=== PATIENT | female | born 1980 | race Caucasian/White ===

== ENCOUNTER 2016-11-09 11:31 | Outpatient (CLI) | payer SELFPAY ==
[~2016-11-09] VITALS: Ht 154.9 cm; Wt 70.9 kg
[2016-11-09 12:19] VITALS: Ht 154.9 cm; Wt 70.9 kg
[2016-11-09 12:20] VITALS: BP 93/54; PULSE 87; RESP 18
[2016-11-09] MEDS ORDERED: LACTATED RINGER'S 1,000 ML IV* SCH (12:30)
[2016-11-09] MEDS: TERBUTALINE 1 MG/ML INJ SC PRN ×2 (12:54→14:32)
[2016-11-09 13:04] LABS: ADD UMIC YES; URINE BILIRUBIN (Dip) NEGATIVE (NEGATIVE); URINE BLOOD (Dip) NEGATIVE (NEGATIVE); URINE COLOR LT. YELLOW (YELLOW); URINE GLUCOSE (Dip) NEGATIVE (NEGATIVE); URINE KETONES (Dip) NEGATIVE (NEGATIVE); URINE LEUKOCYTE ESTERASE (Dip) 1+ (NEGATIVE); URINE NITRITE (Dip) NEGATIVE (NEGATIVE); URINE TOTAL PROTEIN (Dip) NEGATIVE (NEGATIVE); URINE UROBILINOGEN (Dip) 0.2 E.U./dL (0.1-1.0)
[2016-11-09 13:30] LABS: BASOPHILS % 0.3 % (0.0-2.0); EOSINOPHILS # 0.1 10^3/ul (0.0-0.5); HEMATOCRIT 31.8 % (37.0-47.0); LYMPHOCYTES # 1.1 10^3/ul (0.8-2.9); LYMPHOCYTES % 16.3 % (15.0-51.0); MEAN CORPUSCULAR HEMOGLOBIN 31.7 pg (29.0-33.0); MEAN CORPUSCULAR HGB CONC 34.6 g/dl (32.0-37.0); MEAN CORPUSCULAR VOLUME 91.4 fl (82.0-101.0); MEAN PLATELET VOLUME 8.6 fl (7.4-10.4); MONOCYTE # 0.5 10^3/ul (0.3-0.9); MONOCYTES % 7.2 % (0.0-11.0); NEUTROPHILS % 75.2 % (39.0-77.0); PLATELET COUNT 156 10^3/UL (140-440); RED BLOOD COUNT 3.48 10^6/ul (4.20-5.40); UNCORRECTED WBC 6.7 10^3/ul (4.8-10.8); WHITE BLOOD COUNT 6.7 10^3/ul (4.8-10.8)
[2016-11-09 13:35] LABS: SQUAMOUS EPITHELIAL CELL,UR OCCASIONAL; URINE RBCS NONE SEEN /HPF (0)
[2016-11-09 13:37] LABS: CONDITION 1
--- NOTE | 2016-11-09 14:34 | RADRPT ---
PROCEDURE: US OB biophysical profile. CLINICAL INDICATION: evaluation TECHNIQUE: Multiple sonographic images of the pelvis were obtained. The images were reviewed on a PACS workstation. COMPARISON: None FINDINGS: The cervix is closed and measures 4.3 cm in length. There is a single viable intrauterine gestation. Cardiac activity is present with 152 beats per min [place]. There is a transverse presentation to maternal left. The placenta is anterior. There is no evidence of placental abruption. There is a normal amount of amniotic fluid with an APOLINAR = 17.8 cm. Biophysical profile: movement 2/2 tone 2/2. breathing 2/2 APOLINAR 2/2 Total 06/07 RPTAT: AA . IMPRESSION: Normal biophysical profile. Normal APOLINAR. The cervix is closed and measures 4.3 cm in length. Physician Jessica Date Time Electronically viewed and signed by Physician Jessica on 11/09/2016 14:34 /
--- NOTE | 2016-11-09 15:43 | TRIAGE ---
OB Triage Datetime Report Generated by CPN: 11/09/2016 15:43 Datetime: 11/09/2016 14:58 Vaginal Exam Dilatation (cms): 0.0 Exam By: khemani Datetime: 11/09/2016 13:00 Stage of : OB Triage Maternal Assessment Level of Consciousness: Fully Conscious Labor Evaluation Frequency: 2-10 Monitor Mode: External Duration (sec)2399: 30-90 Quality: Mild Resting Tone [place]: Relaxed Heart Rate FHR Baseline Rate: 145 Monitor Mode: External US Variability: Moderate 6-25 bpm Accelerations: 10X10 Decelerations: AGA Pain Assessment Pain Scale: 5 Pain Presence: Intermittent Pain Type: Cramping Pain Location: Abdomen Pain Goal: 3 Pain Relief Measures: Comfort Measures Membrane Status: Intact Vaginal Bleeding: None Datetime: 11/09/2016 12:10 Assessment Type: Triage Maternal Assessment Level of Consciousness: Fully Conscious DTR's/Clonus: DTRs 2+; No Clonus Headache: Denies Blurred Vision: No Respiratory Effort: Unlabored; Regular Rhythm; Equal Expansion Breath Sounds, Left: Clear and Equal Breath Sounds, Right: Clear and Equal Nausea/Vomiting: Denies RUQ Epigastric Pain: Denies Lower Extremities Edema: None Degree: None Upper Extremities Edema: None Degree: None Facial Edema: None Fall Risk Assessment History of Falling: (0) No Secondary Diagnosis: (0) No Ambulatory Aid: (0) Bedrest/Nurse Assist IV Therapy: (0) No Gait: (0) Normal/Bedrest/Immobile Mental Status: (0) Oriented to Own Ability Fall Score: 0 Fall Risk Score Definition: No Risk: No action required Datetime: 11/09/2016 12:09 EGA: 30.4 Datetime: 11/09/2016 12:08 Time of Arrival: 11/09/2016 11:25 Arrived By: Ambulatory Arrived From: Home Movement: Present Contractions: Irregular Rupture of Membranes: Denies Vaginal Bleeding: None Vaginal Discharge: Denies Recent Sexual Intercouse: Denies Abdominal Trauma: Not Applicable Patient Complaints: Contractions; Cramping; Back Pain Provider Notified: MARYELLEN Initial Plan: EFM, CBC, UA, U/S FOR BPP, CVL, IV HYDRATION, TERB X 2 PRN.
--- NOTE | 2016-11-09 17:16 | CONS ---
DATE OF ADMISSION: 11/09/2016 DATE OF CONSULTATION: TYPE OF CONSULT: Triage. HISTORY OF PRESENT ILLNESS: This patient is a 36-year-old 2, para 1, whose estimated date o f confinement is 01/14/2017. That makes her about 30 weeks and 4 days at this time. She came to the triage area complaining of contractions and pelvic pressure and lower abdominal pain. On examinatio n, she did have some contractions every 3 to 10 minutes. heart tones were normal. There was no deceleration or variability. NST was reactive. She had a urinalysis which was basically negativ e except for 1+ leukocyte esterase. Her ultrasound showed that the cervical length was 4.3 cm in [facility] and a single viable gestation with cardiac activity of 152. She was in transverse position on t he left maternal side. The placenta was anterior. No evidence of previa or abruptio. The amniotic fluid was adequate. APOLINAR was 17.8. Her biophysical profile was a complete 06/07, and her CBC was als o normal except for mild anemia with hemoglobin 11, hematocrit 31, RBC was 3.48. The rest of the te sts were basically normal. PHYSICAL EXAMINATION: EARS, NOSE AND THROAT: Appear to be normal. NECK: Normal. Thyroid was normal. CHEST: Clear. ABDOMEN: Soft. She was having some contractions early on. The heart tone was normal, as I me ntioned. EXTREMITIES: Her extremities are normal. No edema, no varicosities. Knee jerk reflex was normal. IMPRESSION AND PLAN: As I mentioned, she was given hydration followed by terbutaline. Her contractio ns subsided, and on the last examination a few minutes ago, basically she did not have any contracti ons. The patient was discharged home with a precaution to rest at home and return either to the [facility] or to the office if evidence of labor or rupture of membranes. Dictated By: ASHLY SANTIAGO/PHUC Conf#: [id number] DID#: [id number]
== END 2016-11-09 15:45 | disposition home or self-care (01) ==
LOC: OBT 11:31 → L-D 11:32 → OBT 15:45
PROVIDERS: ATTEND Obstetrics & Gynecology
DX: O62.9 Abnormality of forces of labor, unspecified (principal); Z3A.30 30 weeks gestation of pregnancy
CPT/HCPCS: 36415; 76817; 76818; 81001; 85025; 96360; 96372; G0463; J3105; J7120; 81003

== ENCOUNTER 2017-01-07 09:58 | Inpatient (IN) | payer MEDICAID ==
[2017-01-07] VITALS (9 sets, daily range): BP systolic 95–118; BP diastolic 52–66; PULSE 50–100; RESP 18–20; Ht 154.9 cm; Wt 70.9 kg
[~2017-01-07] VITALS: Ht 154.9 cm; Wt 70.9 kg
[~2017-01-07 09:58] MED LIST: EPHEDrine SULFATE 50 MG/5 ML SYG ONE; ONDANSETRON 4 MG INJ ONE
[2017-01-07] MEDS ORDERED: OXYTOCIN 30 UNITS/LR 500 ML IV SCH (10:30)
[2017-01-07] MEDS ORDERED: MISOPROSTOL 200 MCG TAB PR PRN ×2 (10:30→20:00)
[2017-01-07] MEDS ORDERED: CEFAZOLIN 2 GM/50 ML (PMX) 50 ML IV SCH (10:30)
[2017-01-07] MEDS ORDERED: OXYTOCIN 30 UNITS/LR 500 ML IV PRN ×2 (10:30→20:00)
[2017-01-07] MEDS ORDERED: METHYLERGONOVINE 0.2 MG INJ IM PRN ×2 (10:30→20:00)
[2017-01-07] MEDS ORDERED: CARBOPROST 250 MCG INJ IM PRN ×2 (10:30→20:00)
[2017-01-07] MEDS: LACTATED RINGER'S 1,000 ML IV SCH ×4 (10:34→20:02)
[2017-01-07 10:43] LABS: ADD SCAN DIFF NO
[2017-01-07 10:51] LABS: BASOPHILS % 0.1 % (0.0-2.0); EOSINOPHILS # 0.1 10^3/ul (0.0-0.5); EOSINOPHILS % 0.7 % (0.0-7.0); HEMATOCRIT 39.8 % (37.0-47.0); HEMOGLOBIN 13.3 g/dl (12.0-16.0); LYMPHOCYTES # 1.2 10^3/ul (0.8-2.9); LYMPHOCYTES % 10.7 % (15.0-51.0); MEAN CORPUSCULAR HEMOGLOBIN 30.3 pg (29.0-33.0); MEAN CORPUSCULAR HGB CONC 33.4 g/dl (32.0-37.0); MEAN CORPUSCULAR VOLUME 90.7 fl (82.0-101.0); MEAN PLATELET VOLUME 11.1 fl (7.4-10.4); MONOCYTE # 0.7 10^3/ul (0.3-0.9); MONOCYTES % 5.7 % (0.0-11.0); NEUTROPHIL # 9.3 10^3/ul (1.6-7.5); PLATELET COUNT 186 10^3/UL (140-415); RED BLOOD COUNT 4.39 10^6/ul (4.20-5.40); RED CELL DISTRIBUTION WIDTH 12.8 % (11.5-14.5); WHITE BLOOD COUNT 11.4 10^3/ul (4.8-10.8)
[2017-01-07 11:10] LABS: INR 0.96; PROTIME 12.8 Sec (12.2-14.2)
[2017-01-07 11:11] LABS: PARTIAL THROMBOPLASTIN TIME 26.1 Sec (25.0-35.0)
[2017-01-07] MEDS ORDERED: METOCLOPRAMIDE 10 MG INJ ONE (14:42)
[2017-01-07] MEDS ORDERED: KETOROLAC 30 MG INJ ONE (14:42)
[2017-01-07] MEDS ORDERED: morphine SULFATE/PF (10 MG/10 ML) INJ ONE (14:42)
[2017-01-07] MEDS ORDERED: ONDANSETRON 4 MG INJ IV PRN ×3 (15:30→16:30)
[2017-01-07] MEDS ORDERED: METOCLOPRAMIDE 10 MG INJ IV PRN ×2 (15:30→16:30)
[2017-01-07] MEDS ORDERED: HYDROmorphONE (0.2 MG/ML) 10ML SYG IV PRN ×6 (15:30→16:30)
[2017-01-07] MEDS ORDERED: MEPERIDINE 25 MG INJ IV PRN ×2 (15:30→16:30)
[2017-01-07] MEDS ORDERED: DIPHENHYDRAMINE 50 MG INJ IV PRN ×3 (15:30→16:30)
[2017-01-07] MEDS ORDERED: OXYTOCIN 30 UNITS/LR 500 ML IV ONE (15:54)
--- NOTE | 2017-01-07 16:21 | HP ---
Date/Time of Note Date/Time of Note DATE: 01/07/17 TIME: 16:14 OB - History Hx of Present Free Text/Dictation admitted for repeat C/S and BTL Last Menstrual Period: Apr 09, 2016 Estimated Due Date: Jan 14, 2017 : 2 Para: 1 Care: Good Care Ultrasounds: Normal mid trimester US Obstetrical Complications: None Medical Complications: Other (previous C/S X 1 ) Past Family/Social History * Past Medical, Surgical, Family and Obstetric Histories reviewed from chart. Blood Type: O+ Rubella: immune RPR/VDRL: Negative GBS Status: Negative HBsAG: Negative OB Admission Exam Vital Signs Vital Signs see nurses notes Physical Exam HEENT: WNL Heart: Rhythm Normal Lungs: Clear, Equal Abdomen: WNL Extremities: Normal Reflexes: Normal Cervical Dilatation: None Effacement: 0% Station: Ballotable Membranes: Intact Amniotic Fluid: Clear Heart Rate: 130's Accelerations: Accelerations Present Decelerations: No Decelerations Varibility: Marked Contractions on Admission: None Last 72 hours Lab Results CBC & BMP 01/07/17 10:17 OB Assessment/Plan Other Assessment: term gestation previous C/S X 1 desires sterilization Other plan: repeat C/S +BTL Patient had good awareness of nature and complications of C/S procedure including but but limited to infection and hemorrhage. Permanency and failure of tubal ligation procedure asa well as its future complications including but not limited to pelvic pain or ectopic were also clear to the patient and agreed to undergo C/S + BTL SHAYY HADDAD MD Jan 07, 2017 16:21
[2017-01-07] MEDS ORDERED: NALOXONE (0.4 MG/ML) INJ IV PRN (16:30)
[2017-01-07] MEDS ORDERED: HYDROmorphONE 1 MG/ML SYG IV PRN ×3 (16:30)
[2017-01-07] MEDS ORDERED: KETOROLAC 30 MG INJ IV PRN (16:30)
--- NOTE | 2017-01-07 16:32 | OPR ---
Operative Report Planned Procedure Procedure date Jan 07, 2017 Procedure(s) repeat C/S + BTL Performed by: SHAYY HADDAD MD Assisting provider: YOANDY BLANCHARD MD Anesthesiologist: STEFANIE VILLARREAL MD Pre-procedure diagnosis repeat C/S + BTL Anesthesia Type: spinal Procedure Description Under satisfactory anaesthesia a Pfannenstiel incision was made two fingerbreadth above and parallel to the symphysis of pubis around the previous scar and previous scar was removed Incision was extended laterally to the border of the Recti muscles on either sides. Incision was carried down with sharp and blunt dissection until fascia was reached. Anterior Recti muscle fascia was incised in mid portion and incision extended laterally to the border of skin incision. Fascia was mobilized from muscle superiorly and Recti muscles were from midline using sharp and blunt dissection. Peritoneum was visualized; Avoiding bowel and bladder it was incised . Incision was extended superiorly and inferiorly. Bladder blade was placed. Posterior peritoneum covering the lower segment of the uterus and lower segment of the uterus were incised.Low transverse uterine incision was made on lower segment of the uterus. Incision extended laterally to the border of Round Lig. on either sides and baby was delivered from OT. position . Amniotic fluid appeared clear. Cord blood was obtained and cord had 3 vessels . Placenta was delivered spontaneously and appeared intact and complete. Intrauterine cavity was rubbed with a laparotomy sponge. Uterine incision was closed in 2 layers using running stitches of No1 Monocryl. Hemostasis appeared secure. Ovaries and Fallopian tubes were within normal limits. Bilateral Tubal Ligation was performed by following procedure: R fallopian tube was raised in mid portion; a Jaycee clamp was placed below the fimbriae extending to proximal portion of the fallopian tube. Another clamp was placed parallel to the first and after incising the fallopian tube the stump was sutured using 0 Vicryl stitch. Hemostasis was secure . Same procedure was done on fallopian tube on the opposite side. Hemostasis appeared to be secure on ligated sites of either fallopian tubes. Announcing needle, lap sponge and instrument count to be correct abdomen was closed in layers as follows: Peritoneum and Recti muscles with running stitches of 20 Vicryl. Fascia with running stitch of No 1 PDS. Subcutaneous tissue with running stitches of 20 Chromic and skin was closed using skye. Patient tolerated the procedure well and was transferred to [facility] in good condition. Post-Procedure Post-procedure diagnosis S/P repeat C/S + BTL Findings: live baby Specimen removed: Yes Specimen description segments of R and L fallopian tubes Complications: None Pt Condition post procedure: stable Disposition: PACU Physician Certification I, the undersigned physician, hereby certify that I have discussed the procedure described in this consent form with this patient (or the patient's legal rental representative), including: * The risk and benefits of the procedure; * Any adverse reactions that may reasonably be expected to occur; * Any alternative efficacious methods of treatment which may be medically viable ; * The potential problems that may occur during recuperation; * Potential for blood transfusion and associated risks/benefits; and * Any research or economic interest I may have regarding this treatment. I further certify that the patient/legally responsible person was encouraged to ask question and that all questions were answered. SHAYY HADDAD MD Jan 07, 2017 16:31
[2017-01-07] MEDS ORDERED: OXYCODONE/ACETAMINOPHEN (5/325) TAB PO PRN (20:00)
[2017-01-07] MEDS ORDERED: LANOLIN 7 GM TUBE TOP PRN (20:00)
[2017-01-07] MEDS ORDERED: NA PHOSPHATE/BIPHOS 133 ML ENEMA PR PRN (20:00)
[2017-01-07] MEDS ORDERED: ACETAMINOPHEN/CODEINE #3 TAB PO PRN (20:00)
[2017-01-07] MEDS: SENNA/DOCUSATE NA (8.6MG/50MG) TAB PO SCH (21:05)
[2017-01-07] MEDS: IBUPROFEN 800 MG TAB PO SCH (22:00)
[2017-01-07] MEDS: CEFAZOLIN 2 GM/50 ML (PMX) 50 ML IV SCH (22:44)
[2017-01-08] VITALS (7 sets, daily range): BP systolic 98–109; BP diastolic 51–65; PULSE 72–80; RESP 18–20
[2017-01-08] MEDS: CLINDAMYCIN 300 MG CAP PO SCH ×5 (00:03→23:42)
[2017-01-08] MEDS: LACTATED RINGER'S 1,000 ML IV SCH ×3 (03:38→19:31)
[2017-01-08] MEDS: IBUPROFEN 800 MG TAB PO SCH ×3 (06:00→21:58)
[2017-01-08] MEDS: CEFAZOLIN 2 GM/50 ML (PMX) 50 ML IV SCH ×2 (06:30→14:51)
[2017-01-08 07:30] LABS: ADD SCAN DIFF NO
[2017-01-08 07:34] LABS: BASOPHILS % 0.1 % (0.0-2.0); HEMATOCRIT 33.1 % (37.0-47.0); LYMPHOCYTES # 0.8 10^3/ul (0.8-2.9); LYMPHOCYTES % 7.9 % (15.0-51.0); MEAN CORPUSCULAR HEMOGLOBIN 30.5 pg (29.0-33.0); MEAN CORPUSCULAR HGB CONC 33.2 g/dl (32.0-37.0); MEAN CORPUSCULAR VOLUME 91.7 fl (82.0-101.0); MEAN PLATELET VOLUME 11.2 fl (7.4-10.4); MONOCYTE # 0.6 10^3/ul (0.3-0.9); MONOCYTES % 5.8 % (0.0-11.0); NEUTROPHIL # 8.6 10^3/ul (1.6-7.5); NEUTROPHILS % 85.8 % (39.0-77.0); PLATELET COUNT 175 10^3/UL (140-415); RED BLOOD COUNT 3.61 10^6/ul (4.20-5.40); RED CELL DISTRIBUTION WIDTH 12.7 % (11.5-14.5); WHITE BLOOD COUNT 10.1 10^3/ul (4.8-10.8)
[2017-01-08] MEDS: SENNA/DOCUSATE NA (8.6MG/50MG) TAB PO SCH ×2 (09:19→20:47)
--- NOTE | 2017-01-08 14:00 | PN ---
Date/Time of Note Date/Time of Note DATE: 01/08/17 TIME: 13:57 Assessment/Plan VTE Prophylaxis VTE Prophylaxis Intervention: ambulation Lines/Catheters IV Catheter Type (from Nrsg): Peripheral IV Assessment/Plan Assessment/Plan S/P C/S POD # 1 will advance diet and ambulate Subjective 24 Hr Interval Summary No BM passing flatus Constitutional: BM, ambulates, flatus, improved, no complaints, urine output Pain Control: well controlled Exam/Review of Systems Vital Signs Vitals Vital Signs Date Time Temp Pulse Resp B/P Pulse Ox O2 Delivery O2 Flow Rate FiO2 01/08/17 12:00 98.0 72 18 102/60 Room Air 01/08/17 05:55 95 21 Intake and Output 01/07/17 01/07/17 01/08/17 15:00 23:00 07:00 Intake Total 2000 ml 1650 ml 1270 ml Output Total 900 ml 300 ml Balance 2000 ml 750 ml 970 ml Exam Free Text/Dictation abdomen: soft BS + incision: covered Constitutional: alert, oriented, well developed Psych: nl mood/affect, no complaints Head: atraumatic, normocephalic Eyes: EOMI, nl conjunctiva, nl lids, nl sclera ENMT: mucosa pink and moist, nl external ears & nose, nl lips & teeth, nl nasal mucosa & septum Neck: non-tender, supple Respiratory: clear to auscultation, normal air movement Cardiovascular: nl pulses, regular rate and rhythm Gastrointestinal: nl liver, spleen, non-tender, soft Musculoskeletal: nl extremities to inspection, nl gait and stance Extremities: normal pulses Neurological: OUTPATIENT INTERVIEWING CLERK II-XII intact, nl mental status, nl speech, nl strength Skin: nl turgor, rash or lesions Lymph: nl lymph nodes Results Result Diagram: 01/08/17 0636 SHAYY HADDAD MD Jan 08, 2017 13:59
[2017-01-09] MEDS: LACTATED RINGER'S 1,000 ML IV SCH ×3 (03:31→21:10)
[2017-01-09 03:45] VITALS: BP 82/47; PULSE 71; RESP 18
[2017-01-09] MEDS: CLINDAMYCIN 300 MG CAP PO SCH ×3 (05:43→17:43)
[2017-01-09] MEDS: IBUPROFEN 800 MG TAB PO SCH ×3 (05:43→22:13)
[2017-01-09 08:15] VITALS: BP 93/59; PULSE 77; RESP 17
[2017-01-09] MEDS ORDERED: INFLUENZA VIRUS VACCINE 0.5 ML (DISPENSING) IM* ONE (09:00)
[2017-01-09] MEDS: SENNA/DOCUSATE NA (8.6MG/50MG) TAB PO SCH ×2 (10:32→21:10)
[2017-01-09 16:00] VITALS: BP 91/54; PULSE 75; RESP 18
--- NOTE | 2017-01-09 16:58 | DS ---
Date/Time of Note Date/Time of Note home next day DATE: 01/09/17 TIME: 16:57 Obstetrical Discharge Record Final Diagnosis Final Diagnosis: Term delivered Vaginal Delivery Obstetrical Delivery: Bilateral Tubal Ligation Section Section: Repeat Condition on Discharge Physical Assessment Last Vitals: see nurses notes Voiding: Yes Bowel Movement: Yes Breast: Soft, non-tender, Filling Fundus: Firm Abdomen and Incision: soft bs + Episiotomy: NA Calf Tenderness: No Patient Condition: Good SHAYY HADDAD MD Jan 09, 2017 16:58
--- NOTE | 2017-01-09 17:00 | DS ---
Date/Time of Note Date/Time of Note DATE: 01/09/17 TIME: 16:58 Discharge Summary Admission/Discharge Info Admit Date/Time Jan 07, 2017 at 09:58 Discharge Date/Time 01/10/2017 Final Diagnosis S/P C/S + BTL Patient Condition: Good Procedures repeat C/S + BTL Hx of Present Illness 36 y/o female underwent repeat C/S + BTL Hospital Course uncomplicated Home Meds No Active Prescriptions or Reported Meds Follow-up Plan 2 days in clinic for staple removal SHAYY HADDAD MD Jan 09, 2017 16:59
--- NOTE | 2017-01-09 17:01 | PD.PPDC ---
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
[2017-01-09] MEDS ORDERED: Oxycodone/Acetamin (5/325) PO (17:02)
[2017-01-09] MEDS ORDERED: IBUP800T25 PO (17:02)
[2017-01-09 20:15] VITALS: BP 99/60; PULSE 78; RESP 18
[2017-01-10] MEDS: CLINDAMYCIN 300 MG CAP PO SCH ×3 (00:05→13:09)
[2017-01-10] MEDS: LACTATED RINGER'S 1,000 ML IV SCH ×2 (03:31→09:13)
[2017-01-10 04:00] VITALS: BP 97/54; PULSE 71; RESP 18
[2017-01-10] MEDS: IBUPROFEN 800 MG TAB PO SCH ×2 (06:10→13:10)
[2017-01-10 07:45] VITALS: BP 104/58; PULSE 76; RESP 18
[2017-01-10] MEDS ORDERED: DIPHTH/TET/ACEL PERTUSS (ADULT) 0.5 ML VIAL IM* ONE (09:00)
[2017-01-10] MEDS ORDERED: MEASLES,MUMPS,RUBELLA VACCINE INJ SC* ONE (09:00)
[2017-01-10] MEDS: SENNA/DOCUSATE NA (8.6MG/50MG) TAB PO SCH (09:05)
== END 2017-01-10 14:20 | disposition home or self-care (01) | DRG 766 ==
LOC: L-D 09:58 → PP1 19:27
PROVIDERS: ADMIT Obstetrics & Gynecology; ATTEND Obstetrics & Gynecology
PROC: 0UL70ZZ Occlusion of Bilateral Fallopian Tubes, Open Approach (ICD-10-PCS; 2017-01-07)
PROC: 10D00Z1 Extraction of Products of Conception, Low, Open Approach (ICD-10-PCS; principal; 2017-01-07 14:00)
PROC: 3E00X4Z Introduction of Serum, Toxoid and Vaccine into Skin and Mucous Membranes, External Approach (ICD-10-PCS; 2017-01-10)
DX: O34.211 Maternal care for low transverse scar from previous cesarean delivery (principal); Z23 Encounter for immunization; Z30.2 Encounter for sterilization; Z3A.39 39 weeks gestation of pregnancy; Z37.0 Single live birth
CPT/HCPCS: 85025; 85610; 85730; 86592; 86850; 86900; 86901; 88302; 90686; 90715; 94760; 99464; J0690; J1885; J2274; J2405; J2590; J2765; J7120